=== PATIENT | female | born 1970 | race Caucasian/White ===

== ENCOUNTER → 2016-11-19 | Outpatient (CLI) | payer MEDICAID ==
--- NOTE | 2016-11-19 12:12 | RADIOLOGY REPORT PS360 ---
EXAM: THORACIC SPINE-3V SWIMMERS HISTORY: BACK PAIN COMPARISON: None FINDINGS: Normal alignment. No fracture or dislocation. No lytic or blastic change. No significant degenerative change. The disc spaces are preserved. Minimal bony spurring noted along the lower thoracic spine anteriorly at T9-T10. The disc spaces are well-preserved. IMPRESSION: 1. No acute finding. 2. Minimal spondylosis lower thoracic spine
--- NOTE | 2016-11-19 12:14 | RADIOLOGY REPORT PS360 ---
EXAM: LUMBAR SPINE-2 TO 3 VIEWS HISTORY: BACK PAIN COMPARISON: None FINDINGS: Normal alignment. No fracture or dislocation. No lytic or blastic change. Moderate degenerative disc disease L1-L2 and L2-L3 with anterior osteophytes at these levels greatest at L2-L3. There is minimal retrolisthesis of L2 of 3 mm and mild retrolisthesis of L3 of 3 mm.. Mild degenerative disc disease L3-L4. IMPRESSION: 1. Spondylosis of the lumbar spine with degenerative disc disease at L1-L2, L2-L3, and L3-L4 with osteophytosis and retrolisthesis of L2 and L3
== END ==
LOC: RAD 09:40
DX: M54.5 Low back pain (principal)